=== PATIENT | female | born 1955 | race Caucasian/White ===

== ENCOUNTER 2018-09-10 19:04 | Outpatient (REF) | payer MEDICAID, SELFPAY ==
[2018-09-10 20:04] LABS: Abs Immature Grans 0.01 k/cumm (0.0-0.09); Absolute Basophil Count 0.02 k/cumm (0.0-0.2); Absolute Eosinophil Count 0.04 k/cumm (0.0-0.7); Absolute Lymphocyte Count 2.32 k/cumm (1.2-3.4); Absolute Neutrophil Count 3.02 k/cumm (1.2-6.7); Basophils % 0.4; Eosinophils % 0.7; HCT 40.3 % (36.0-46.0); HGB 13.6 g/dL (12.0-15.5); Immature Grans % 0.2; Lymphocytes % 40.6; Mean Corp. HGB Concentration 33.7 g/dL (32.0-36.0); Mean Corpuscular Hemoglobin 33.9 pg (27.0-33.0); Mean Corpuscular Volume 100.5 fL (80-95); Monocytes % 5.3; Neutrophils % 52.8; Platelet Count 227 x1000/uL (130-400); RBC 4.01 m/cumm (4.00-5.20); RBC Distribution Width 12.7 % (11.7-14.6); White Blood Cell Count 5.71 k/cumm (4.4-10.8)
[2018-09-10 20:12] LABS: ALT 16 U/L (12-78); AST 20 U/L (15-37); Albumin 3.8 g/dL (3.4-5.0); Alkaline Phosphatase 63 U/L (46-116); Anion Gap 7.7 mmol/L (3-11); BUN 14 mg/dL (7-18); Bilirubin, Total 0.2 mg/dL (0.2-1.0); CO2 28.3 mmol/L (21.0-32.0); CREATININE 0.63 mg/dL (0.55-1.02); Calcium 9.2 mg/dL (8.5-10.1); Chloride 107 mmol/L (98-107); Glucose 91 mg/dL (70-100); Potassium 4.9 mmol/L (3.5-5.1); Sodium 143 mmol/L (136-145); TSH (W/Ref FT4) 4.49 uIU/mL (0.358-3.74); Total Protein 6.8 g/dL (6.4-8.2)
[2018-09-10 20:35] LABS: FREE T4 0.83 ng/dL (0.76-1.46)
== END 2018-09-10 19:24 ==
LOC: NCHCN 19:04
PROVIDERS: PCP Nurse Practitioner Adult Health; Visit Provider Nurse Practitioner Family
DX: N95.1 Menopausal and female climacteric states (principal); Z00.00 Encounter for general adult medical examination without abnormal findings
CPT/HCPCS: 80053; 84439; 84443; 85025

== ENCOUNTER 2019-01-09 12:43 | Outpatient (REF) | payer MEDICAID, SELFPAY ==
--- NOTE | 2019-01-10 11:45 | SKI_PTH ---
PATIENT: Katlyn Garcia LOC: [facility] U#:[id number] AGE/SX: 63/F ROOM: RE01/09/[address]: Jayson Zavala : 1955 BED: DIS: 01/09/2019 SPEC #: [id number] RECD: 01/10/19 12:49 STATUS: [place] REQ #: [id number] ANKITA: 01/10/19 11:[address]: Jayson Zavala DEPT: Surgical Specimen RECD BY: Yuli Lombardo ENTERED: 01/10/19 12:50 SP TYPE: LLUVIA ARCHER DR: Ana Lara Tissues: 1 - SKIN BIOPSY(SHAVE/PUNCH) Procedures: SKIN LEVEL 4 Comments: [id number]
== END 2019-01-09 13:03 ==
LOC: NCHCN 12:43
PROVIDERS: PCP Nurse Practitioner Adult Health; Visit Provider Family Medicine
DX: D22.39 Melanocytic nevi of other parts of face (principal)
CPT/HCPCS: 88305